=== PATIENT | male | born 1945 | race African-American/Black ===

== ENCOUNTER 2018-02-15 07:56 | Outpatient (CLI) | payer MEDICARE, OTHER ==
--- NOTE | 2018-02-15 09:22 | ULT ---
ULTRASOUND ABDOMINAL AORTA: HISTORY: Screen for abdominal aortic aneurysm. The patient is a smoker for the past 50 years. FINDINGS: Sonographic evaluation of the abdominal aorta demonstrates the proximal abdominal aorta measuring 3.3 cm in maximum AP diameter. IMPRESSION: A 3.3 cm abdominal aortic aneurysm. POS: JOANNE
== END 2018-02-15 07:57 | disposition home or self-care (01) ==
LOC: SCSULT 07:56
PROVIDERS: ATTEND Family Medicine
DX: Z13.6 Encounter for screening for cardiovascular disorders (principal); F17.200 Nicotine dependence, unspecified, uncomplicated; I71.4 Abdominal aortic aneurysm, without rupture
CPT/HCPCS: 76775

== ENCOUNTER 2019-08-31 09:01 | Outpatient (CLI) | payer MEDICARE, BC ==
--- NOTE | 2019-08-31 10:16 | CT ---
CT ABDOMEN AND PELVIS WITH IV CONTRAST CT ABDOMEN WITHOUT IV CONTRAST 08/31/2019 CLINICAL INFORMATION: Elevated alkaline phosphatase. Monoclonal gammopathy. Right lower back pain. COMPARISON: None. Technique: Multiple contiguous axial CT images are obtained through the abdomen and pelvis with IV contrast. Cor onal reformatted images are provided. FINDINGS: Lower Chest: Minimal linear scar versus atelectasis is seen at each lung base. No pulmonary nodule or mass is seen, and there is no pleural effusion identified. Vessels: Vascular calcifications are seen in the abdominal aorta and iliac arteries with associated s cattered atherosclerotic plaque. There is ectasia of the abdominal aorta. Ultrasound examination on 02/15/2018 reported a small abdominal aortic aneurysm. However, the abdominal aorta measures just less than 3 cm on this exam. Abdomen: Portal vein:Patent Gallbladder: There is increased density material within the gallbladder lumen which may represent slu dge and/or gallbladder calculi. Liver: within normal limits. Spleen: within normal limits. Pancreas: Fatty replaced but otherwise demonstrates a normal appearance. Adrenals: within normal limits. Kidneys: Multiple hypodense renal lesions are seen bilaterally majority of which demonstrate fluid at tenuation and are compatible with cysts. Largest cyst in the right kidney is present in the superior pole measuring 4.1 cm with largest cyst in the superior pole left kidney measuring 3.7 cm. A few increased density Bosniak type II renal cystic lesions are seen in the right kidney. Bowel: Normal caliber. Appendix: The appendix is visualized and normal in caliber. Peritoneum: No ascites or free air; no fluid collection. Mesentery and Retroperitoneum: No enlarged mesenteric or retroperitoneal lymph nodes. Abdominal Wall: Very tiny fat-containing umbilical hernia is present. Pelvis: Reproductive Organs: No pelvic masses. Pelvis within normal limits. Bladder: within normal limits. Bones: Multilevel degenerative changes are seen in the spine. IMPRESSION: 1. Increased density layering within the gallbladder which may represent gallbladder calculi and/or s ludge. 2. Bilateral renal cysts with Bosniak type II renal cystic lesions right kidney. 3. No acute findings are seen in the abdomen or pelvis. 4. Prominent vascular calcifications and atherosclerotic plaque in the abdominal aorta and iliac jethro jae.
[2019-08-31] MEDS ORDERED: Iopamidol 370 76% 100 ML VIAL ONE (15:48)
== END 2019-08-31 09:02 | disposition home or self-care (01) ==
LOC: CT 09:01
PROVIDERS: ATTEND Family Medicine
DX: D47.2 Monoclonal gammopathy (principal); R74.8 Abnormal levels of other serum enzymes; Q61.9 Cystic kidney disease, unspecified; I70.0 Atherosclerosis of aorta; I70.209 Unspecified atherosclerosis of native arteries of extremities, unspecified extremity
CPT/HCPCS: 74178; Q9967

== ENCOUNTER 2020-04-29 10:59 | Outpatient (CLI) | payer MEDICARE, BC ==
--- NOTE | 2020-04-29 11:33 | ULT ---
Exam: Thyroid ultrasound HISTORY: Decreased TSH Comparison none FINDINGS: Normal thyroid echotexture. No solid, complex Right thyroid lobe measures 2.3 x 4.9 x 2.4 cm Left thyroid lobe measures 2.1 x 4.6 x 0.5 cm Thyroid isthmus is 0.4 cm IMPRESSION: Normal thyroid echotexture.
== END 2020-04-29 11:00 | disposition home or self-care (01) ==
LOC: SCSULT 10:59
PROVIDERS: ATTEND Family Medicine
DX: R94.6 Abnormal results of thyroid function studies (principal)
CPT/HCPCS: 76536

== ENCOUNTER 2020-05-06 13:23 | Outpatient (CLI) | payer MEDICARE, BC ==
--- NOTE | 2020-05-06 22:10 | EEG ---
DATE OF SERVICE: 05/06/2020 DESCRIPTION OF THE RECORD: The background activity is a medium amplitude 9 hertz alpha frequency. The patient remained awake throughout the study. Photic stimulation was unremarkable. No epileptiform features were seen. IMPRESSION: This is a normal awake EEG. Job ID: [id number]
== END 2020-05-06 13:24 | disposition home or self-care (01) ==
LOC: EEG 13:23
PROVIDERS: ATTEND Nurse Practitioner Acute Care
DX: G40.909 Epilepsy, unspecified, not intractable, without status epilepticus (principal)
CPT/HCPCS: 95816

== ENCOUNTER 2024-09-29 11:04 | Inpatient (IN) | payer MEDICARE ==
[2024-09-29] MEDS ORDERED: Acetaminophen/Codeine 30-300mg Tablet PO PRN (14:43)
[2024-09-29] MEDS ORDERED: Ondansetron ODT 4 MG TAB PO PRN (14:43)
[2024-09-29] MEDS ORDERED: Ondansetron PF 4 MG/2 ML Vial IVP PRN (14:43)
[2024-09-29] MEDS ORDERED: NOREPINEPHRINE 8 MG/250 ML-D5W 250 ML IVPB SCH (14:45)
[2024-09-29] MEDS: Lactated Ringer's 1,000 ML IV SCH (16:07)
[2024-09-29] MEDS: Cefepime 2 GM in Sodium Chloride 0.9% 100 ML IVPB SCH (16:13)
[2024-09-29] MEDS: Vancomycin 1 GM in Premix 1 BAG IVPB SCH (16:14)
[2024-09-29] MEDS: Famotidine 20 MG TAB PO SCH (20:30)
[2024-09-29] MEDS: Famotidine/PF 20 mg/2ml Vial SLOW IVP SCH (20:30)
[2024-09-29 21:12] LABS: Legionella Urinary Ag Negative (Negative)
[2024-09-30 04:57] LABS: #Basophils 0.03 10x3/uL (0.0-0.2); #Eosinophils Less than 0.03 10x3/uL (0.0-0.7); %Basophils 0.3 % (0.0-1.0); %Lymphocytes 7.7 % (21.0-51.0); %Neutrophils 81.6 % (42.0-75.0); Hematocrit 36.7 % (42.0-52.0); Hemoglobin 12.4 g/dL (14.0-18.0); Mean Corpuscular HGB CONC 33.8 g/dL (32.0-36.0); Mean Corpuscular Hemoglobin 32.2 pg (27.0-31.0); Mean Corpuscular Volume 95.3 fL (78.0-98.0); Mean Platelet Volume 10.7 fL (7.4-10.4); Platelet Count 86 10x3/uL (130-400); RBC Distribution Width 14.3 % (11.5-14.5); Red Blood Cell (RBC) Count 3.85 mill/uL (4.70-6.10)
[2024-09-30 05:04] LABS: Vancomycin, Random 4.1 ug/mL (See Comment)
[2024-09-30 05:07] LABS: ALT (SGPT) 45 U/L (8-55); AST (SGOT) 56 U/L (5-34); Albumin 2.6 g/dL (3.4-4.8); Alkaline Phosphatase 91 U/L (40-110); Anion Gap 9 mmol/L (10-20); BUN (Urea Nitrogen) 18 mg/dL (8.4-25.7); Bilirubin, Total 0.4 mg/dL (0.2-1.2); Calc. Creatinine Clearance 105 mL/min (70-130); Calcium 7.9 mg/dL (7.8-10.44); Carbon Dioxide 22 mmol/L (23-31); Chloride 110 mmol/L (98-107); Estimated GFR 91; Globulin 2.9 g/dL (2.4-3.5); Glucose 122 mg/dL (83-110); Potassium 3.6 mmol/L (3.5-5.1); Protein, Total 5.5 g/dL (5.8-8.1); Sodium 137 mmol/L (136-145)
[2024-09-30 07:33] LABS: Strep pneumo Urine Ag NEGATIVE (NEGATIVE)
[2024-09-30] MEDS: Phenytoin Extended Release 100 MG CAP PO SCH (08:23)
[2024-09-30] MEDS: Enoxaparin 40 MG (0.4 mL) SYRINGE SC SCH (08:23)
[2024-09-30] MEDS ORDERED: Phenytoin Extended Release 100 MG CAP PO SCH (09:00)
[2024-09-30 10:35] LABS: Influenza A by NAA Not Detected (NotDetected); Influenza B by NAA Not Detected (NotDetected); RSV by NAA Not Detected (NotDetected); SARS-CoV-2 NAA Rapid Test Not Detected (NotDetected)
[2024-09-30] MEDS: Cefepime 2 GM in Sodium Chloride 0.9% 100 ML IVPB SCH (15:57)
[2024-09-30] MEDS: Vancomycin (BATCH) 1.25 GM in Premix 1 BAG IVPB SCH (17:03)
[2024-09-30] MEDS ORDERED: VANCOMYCIN 1.25 GM/250 ML BAG 1.25 GM in Premix 1 BAG IVPB SCH (18:00)
[2024-10-01 04:29] VITALS: BMI 28.8
[2024-10-01 04:42] LABS: #Basophils Less than 0.03 10x3/uL (0.0-0.2); %Basophils 0.2 % (0.0-1.0); %Eosinophils 1.5 % (0.0-10.0); %Monocytes 15.6 % (0.0-10.0); %Neutrophils 66.5 % (42.0-75.0); Hematocrit 37.5 % (42.0-52.0); Hemoglobin 12.9 g/dL (14.0-18.0); Mean Corpuscular HGB CONC 34.4 g/dL (32.0-36.0); Mean Corpuscular Hemoglobin 32.6 pg (27.0-31.0); Mean Corpuscular Volume 94.7 fL (78.0-98.0); Mean Platelet Volume 10.6 fL (7.4-10.4); Platelet Count 76 10x3/uL (130-400); RBC Distribution Width 13.7 % (11.5-14.5); Red Blood Cell (RBC) Count 3.96 mill/uL (4.70-6.10)
[2024-10-01 04:43] LABS: Anion Gap 10 mmol/L (10-20); BUN (Urea Nitrogen) 15 mg/dL (8.4-25.7); Calc. Creatinine Clearance 115 mL/min (70-130); Calcium 7.9 mg/dL (7.8-10.44); Carbon Dioxide 24 mmol/L (23-31); Chloride 109 mmol/L (98-107); Estimated GFR 92; Glucose 129 mg/dL (83-110); Potassium 3.6 mmol/L (3.5-5.1); Sodium 139 mmol/L (136-145)
[2024-10-01] MEDS: Phenytoin Extended Release 100 MG CAP PO SCH (09:28)
[2024-10-01] MEDS: CEFAZOLIN 1 GM in Sodium Chloride 0.9% 100 ML IVPB SCH (17:05)
[2024-10-02 01:21] VITALS: BMI 28.8
[2024-10-02 06:20] LABS: Anion Gap 11 mmol/L (10-20); BUN (Urea Nitrogen) 11 mg/dL (8.4-25.7); Calc. Creatinine Clearance 127 mL/min (70-130); Calcium 8.2 mg/dL (7.8-10.44); Carbon Dioxide 23 mmol/L (23-31); Chloride 108 mmol/L (98-107); Estimated GFR 95; Glucose 115 mg/dL (83-110); Potassium 3.6 mmol/L (3.5-5.1); Sodium 138 mmol/L (136-145)
[2024-10-02 07:37] LABS: #Basophils Less than 0.03 10x3/uL (0.0-0.2); %Basophils 0.4 % (0.0-1.0); %Eosinophils 3.3 % (0.0-10.0); %Lymphocytes 22.2 % (21.0-51.0); %Monocytes 17.2 % (0.0-10.0); %Neutrophils 56.3 % (42.0-75.0); Hematocrit 37.2 % (42.0-52.0); Hemoglobin 12.8 g/dL (14.0-18.0); Mean Corpuscular HGB CONC 34.4 g/dL (32.0-36.0); Mean Corpuscular Hemoglobin 32.3 pg (27.0-31.0); Mean Corpuscular Volume 93.9 fL (78.0-98.0); Mean Platelet Volume 10.3 fL (7.4-10.4); Platelet Count 93 10x3/uL (130-400); RBC Distribution Width 13.4 % (11.5-14.5); Red Blood Cell (RBC) Count 3.96 mill/uL (4.70-6.10)
[2024-10-03 05:57] LABS: #Basophils Less than 0.03 10x3/uL (0.0-0.2); %Basophils 0.4 % (0.0-1.0); %Eosinophils 3.9 % (0.0-10.0); %Lymphocytes 24.3 % (21.0-51.0); %Monocytes 20.4 % (0.0-10.0); %Neutrophils 50.3 % (42.0-75.0); Hematocrit 35.8 % (42.0-52.0); Hemoglobin 12.3 g/dL (14.0-18.0); Mean Corpuscular HGB CONC 34.4 g/dL (32.0-36.0); Mean Corpuscular Hemoglobin 31.9 pg (27.0-31.0); Mean Platelet Volume 9.6 fL (7.4-10.4); Platelet Count 109 10x3/uL (130-400); RBC Distribution Width 13.3 % (11.5-14.5); Red Blood Cell (RBC) Count 3.85 mill/uL (4.70-6.10)
[2024-10-03 06:02] LABS: Anion Gap 13 mmol/L (10-20); BUN (Urea Nitrogen) 12 mg/dL (8.4-25.7); Calc. Creatinine Clearance 141 mL/min (70-130); Calcium 8.4 mg/dL (7.8-10.44); Carbon Dioxide 25 mmol/L (23-31); Chloride 107 mmol/L (98-107); Estimated GFR 98; Glucose 108 mg/dL (83-110); Potassium 3.6 mmol/L (3.5-5.1); Sodium 141 mmol/L (136-145)
[2024-10-03] MEDS ORDERED: Lidocaine 1% PF 5 ML VIAL ONE (13:56)
[2024-10-03] MEDS ORDERED: Sodium Bicarbonate 2.5 MEQ/5 ML SDV ONE (13:56)
[2024-10-03] MEDS: CEFAZOLIN 2 GM in Sodium Chloride 0.9% 100 ML IVPB SCH (16:34)
[2024-10-03] MEDS: LevoFLOXacin 750 MG TAB PO SCH (16:34)
[2024-10-04] MEDS: LevoFLOXacin 750 MG TAB PO SCH (05:21)
[2024-10-04 05:55] LABS: #Basophils 0.03 10x3/uL (0.0-0.2); %Basophils 0.5 % (0.0-1.0); %Eosinophils 3.8 % (0.0-10.0); %Lymphocytes 24.3 % (21.0-51.0); %Monocytes 17.5 % (0.0-10.0); %Neutrophils 52.6 % (42.0-75.0); Hemoglobin 12.9 g/dL (14.0-18.0); Mean Corpuscular HGB CONC 35.8 g/dL (32.0-36.0); Mean Corpuscular Hemoglobin 33.3 pg (27.0-31.0); Mean Platelet Volume 11.2 fL (7.4-10.4); Platelet Count 180 10x3/uL (130-400); RBC Distribution Width 13.6 % (11.5-14.5); Red Blood Cell (RBC) Count 3.87 mill/uL (4.70-6.10)
[2024-10-04 06:04] LABS: Anion Gap 12 mmol/L (10-20); BUN (Urea Nitrogen) 15 mg/dL (8.4-25.7); Calc. Creatinine Clearance 123 mL/min (70-130); Calcium 8.9 mg/dL (7.8-10.44); Carbon Dioxide 27 mmol/L (23-31); Chloride 107 mmol/L (98-107); Estimated GFR 94; Glucose 105 mg/dL (83-110); Sodium 142 mmol/L (136-145)
[2024-10-04 08:30] VITALS: BP 124/76; TEMP 98.2
== END 2024-10-04 14:31 | disposition home or self-care (01) | DRG 871 ==
LOC: ERS 11:04 → CCU 14:12 → T4-A 09-30 10:24
PROVIDERS: ADMIT Internal Medicine; ATTEND Internal Medicine
PROC: 02HV33Z Insertion of Infusion Device into Superior Vena Cava, Percutaneous Approach (ICD-10-PCS; principal; 2024-10-03)
DX: A41.01 Sepsis due to Methicillin susceptible Staphylococcus aureus (principal); G93.41 Metabolic encephalopathy; J18.9 Pneumonia, unspecified organism; R65.21 Severe sepsis with septic shock; J96.01 Acute respiratory failure with hypoxia; J69.0 Pneumonitis due to inhalation of food and vomit; E78.5 Hyperlipidemia, unspecified; Z66 Do not resuscitate; Z79.899 Other long term (current) drug therapy
CPT/HCPCS: 0241U; 36415; 36416; 36556; 36573; 51701; 70450; 71045; 80048; 80053; 80202; 81001; 83605; 84145; 85025; 87040; 87077; 87086; 87149; 87186; 87428; 87449; 87899; 93005; 93306; 96361; 96365; 96366; 96375; 97139; C1751; J0456; J0690; J0692; J0696; J1650; J3370; J3490; J7120

== ENCOUNTER 2024-11-06 07:44 | Outpatient (CLI) | payer MEDICARE ==
[2024-11-06] MEDS ORDERED: Regadenoson 0.4 MG/5 ML SYRINGE ONE (08:59)
== END 2024-11-06 07:45 | disposition home or self-care (01) ==
LOC: NM 07:44
PROVIDERS: ATTEND Family Medicine
DX: R07.89 Other chest pain (principal); R94.8 Abnormal results of function studies of other organs and systems
CPT/HCPCS: 78452; 93017; A9502; J2785 ×2